=== PATIENT | female | born 1995 | race Asian ===

== ENCOUNTER 2016-10-18 11:38 | Emergency (ER) | payer OTHER ==
[2016-10-18 11:43] VITALS: BP 129/67; PULSE 105; TEMP 97.8; BMI 23.3
[2016-10-18 12:05] LABS: URINE APPEARANCE CLOUDY; URINE BILIRUBIN NEGATIVE (NEGATIVE); URINE COLOR RED; URINE GLUCOSE (UA) NEGATIVE (NEGATIVE); URINE KETONE NEGATIVE (NEGATIVE); URINE NITRITE NEGATIVE (NEGATIVE); URINE UROBILINOGEN NEGATIVE E.U./dl (0.2-1.0)
[2016-10-18 12:07] LABS: URINE BLOOD 3+ (NEGATIVE); URINE LEUK ESTERASE 2+ (NEGATIVE); URINE PROTEIN 3+ (NEGATIVE)
[2016-10-18 12:10] LABS: URINE RBC 4390 /hpf (0-3); URINE WBC 328 /hpf (3-5)
--- NOTE | 2016-10-18 12:31 | PDOC ---
History of Present Illness - General Chief Complaint: Urinary Problem Stated Complaint: ABD PAIN Time Seen by Provider: 10/18/16 12:24 History Source: Patient Exam Limitations: No Limitations - History of Present Illness Travel History: No Initial Comments: 10/18/16 12:34 onset of pain/ burning/ frequency x 2 days. Has had UTIS associated with Menses. Does not remember what meds taken. No fevers/ N/V or other problems 10/18/16 12:40 10/18/16 12:47 10/18/16 16:46 Timing/Duration: reports: getting worse, changing over time Quality: reports: mild Abdominal Pain Onset Location: reports: suprapubic, flank Pain Radiation: reports: no radiation Activities at Onset: reports: none Past History - Travel Traveled outside of the country in the last 30 days: No Close contact w/someone who was outside of country & ill: No - Past Medical History Allergies/Adverse Reactions: Allergies Allergy/AdvReac Type Severity Reaction Status Date / Time No Known Allergies Allergy Verified 10/18/16 11:43 Home Medications: Ambulatory Orders Nitrofurantoin Monohyd/M-Cryst [Macrobid -] 100 mg PO BID #14 capsule 10/18/16 Psychiatric Problems: Yes (ADHD) Other medical history: ARTHRITIS - Psycho/Social/Smoking Cessation Hx Anxiety: No Suicidal Ideation: No Smoking History: Never smoked Hx Alcohol Use: No Drug/Substance Use Hx: No Substance Use Type: None Review of Systems - Review of Systems Able to Perform ROS?: Yes Is the patient limited Citizen [place] proficient: Yes Constitutional: Yes: Symptoms Reported Respiratory: No: Symptoms reported ABD/GI: Yes: Symptoms Reported, Nausea, Abdominal cramping : Yes: Symptoms Reported, See HPI, Burning, Dysuria, Frequency, Hematuria. No : Discharge All Other Systems: Reviewed and Negative *Physical Exam - Vital Signs Last Vital Signs Temp Pulse Resp BP Pulse Ox 97.8 F 105 H 20 129/67 100 10/18/16 11:41 10/18/16 11:41 10/18/16 11:41 10/18/16 11:41 10/18/16 11:41 - Physical Exam General Appearance: Yes: Nourished, Appropriately Dressed, Apparent Distress, Mild Distress, Moderate Distress HEENT: positive: RODGER, Normal ENT Inspection, TMs Normal, Pharynx Normal Neck: negative: Tender Respiratory/Chest: positive: Lungs Clear, Normal Breath Sounds Gastrointestinal/Abdominal: positive: Tender (suprapubic ), Soft. negative: Normal Bowel Sounds, Distended, Guarding, Rebound Musculoskeletal: positive: Normal Inspection. negative: CVA Tenderness Extremity: positive: Normal Capillary Refill, Normal Inspection Integumentary: positive: Dry, Warm, Pale Neurologic: positive: user experience analyst II-XII NML intact, Fully Oriented, Alert, Normal Mood/ Affect, Normal Response, Motor Strength 08/21 ED Treatment Course - ADDITIONAL ORDERS Additional order review: Laboratory Results 10/18/16 11:56 Urine Color Red Urine Appearance Cloudy Urine pH 6.0 Urine Protein 3+ H Urine Glucose (UA) Negative Urine Ketones Negative Urine Blood 3+ H Urine Nitrite Negative Urine Bilirubin Negative Urine Urobilinogen Negative Ur Leukocyte Esterase 2+ H Urine RBC 4390 Urine WBC 328 Ur Epithelial Cells Many Urine HCG, Qual Negative Progress Note - Progress Note Progress Note: UTI, WIll treat with Macrobid. GIven 1st dose *DC/Admit/Observation/Transfer Diagnosis at time of Disposition: UTI (urinary tract infection) Qualifiers: Urinary tract infection type: acute cystitis Hematuria presence: with hematuria Qualified Code(s): N30.01 - Acute cystitis with hematuria - Discharge Dispostion Disposition: HOME Condition at time of disposition: Stable Admit: No - Prescriptions Prescriptions: Nitrofurantoin Monohyd/M-Cryst [Macrobid -] 100 mg PO BID #14 capsule - Referrals Referrals: STAFF,NOT ON [Primary Care Provider] - - Patient Instructions Printed Discharge Instructions: DI for Urinary Tract Infection (UTI) Additional Instructions: Rest, drink lots of fluids: Teas, water, soups Avoid contact with others until fevers and symptoms resolved Lots of handwashing and good hygiene Continue [id number] medications for symptomatic relief Tylenol or Motrin for fever and pain Continue all of antibiotics until completed Followup with private physician in one week for repeat urinalysis/reevaluation Return to emergency department for worsened symptoms, fevers, dehydration - Post Discharge Activity Work/School Note: Back to Work
[2016-10-18] MEDS ORDERED: NITROFURANTOIN MACROCRYSTAL 50 MG CAPSULE (FP) ONE (12:34)
[2016-10-18] MEDS ORDERED: NITROFURANTOIN MACROCRYSTAL 50 MG CAPSULE (FP) PO SCH (12:45)
== END 2016-10-18 13:13 | disposition home or self-care (01) ==
LOC: JERFT 11:38
DX: N30.01 Acute cystitis with hematuria (principal)
CPT/HCPCS: 81003; 81015; 84703; 99281-25

== ENCOUNTER 2019-06-12 20:59 | Emergency (ER) | payer OTHER ==
--- NOTE | 2019-06-12 21:07 | PDOC ---
Rapid Medical Evaluation Medical Evaluation: Allergies Allergy/AdvReac Type Severity Reaction Status Date / Time No Known Allergies Allergy Verified 10/18/16 11:43 I have performed a brief in-person evaluation of this patient. The patient presents with a chief complaint of: CP upon inspiration x 2 days; denies fever, cough; denies smoking; is on Nuvaring Pertinent physical exam findings: In NAD I have ordered the following: ekg, cxr, labs The patient will proceed to the ED for further evaluation. 06/12/19 21:04
[2019-06-12 21:10] VITALS: TEMP 97.7; BMI 28.3
[2019-06-13 00:09] LABS: BASO % 0.5 % (0-2.0); EOS % 1.4 % (0-4.5); HEMATOCRIT 42.7 % (32.4-45.2); HEMOGLOBIN 14.5 GM/dL (10.7-15.3); MCH 29.2 pg (25.7-33.7); MEAN CELL VOLUME 85.9 fl (80-96); MEAN PLT VOLUME 8.8 fl (7.5-11.1); MONO % 8.6 % (3.8-10.2); NEUT % 46.5 % (42.8-82.8); PLATELET COUNT 273 K/MM3 (134-434); RBC 4.97 M/mm3 (3.60-5.2); RDW 13.8 % (11.6-15.6)
[2019-06-13 00:34] LABS: ALBUMIN 3.9 g/dl (3.4-5.0); BILIRUBIN,TOTAL 0.3 mg/dL (0.2-1); BLOOD UREA NITROGEN 11.5 mg/dL (7-18); CALCIUM 9.6 mg/dL (8.5-10.1); CREATININE 0.8 mg/dL (0.55-1.3); POTASSIUM 3.9 mmol/L (3.5-5.1)
[2019-06-13] MEDS ORDERED: ACETAMINOPHEN 1000 MG/100 ML VIAL (NON FORMULARY) IVPB ONE (00:37)
[2019-06-13] MEDS ORDERED: SODIUM CHLORIDE 1,000 ML IV STA (00:37)
[2019-06-13] MEDS ORDERED: ACETAMINOPHEN INJECTION 100 ML IVPB ONE (00:45)
--- NOTE | 2019-06-13 01:33 | PDOC ---
Documentation entered by Lois Blankenship SCRIBE, acting as scribe for Loretta Johnston MD. Loretta Johnston MD: This documentation has been prepared by the joseibe, Lois Blankenship SCRIBE, under my direction and personally reviewed by me in its entirety. I confirm that the documentation accurately reflects all work, treatment, procedures, and medical decision making performed by me. Attending Attestation - Resident Resident Name: Arpan Stiles - ED Attending Attestation I have performed the following: I have examined & evaluated the patient, The case was reviewed & discussed with the resident, I agree w/resident's findings & plan, Exceptions are as noted - HPI HPI: 06/13/19 00:39 The patient is a 23-year-old female with no significant past medical history who presents to the emergency department with chest pain. 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 The patient reports today while driving, she had a hard time breathing, felt short of breath, associated with pleuritic chest pain, left- sided neck swelling, and several weeks of postnasal drip. The patient reports she's currently on NuvaRing. Allergies: NKA LMP: Currently. Social history: Occasional hookah use, occasional alcohol use. Family history: DM (Dad and Mom). Muscular dystrophy (Mom). Surgical history: breast reduction, ovarian cyst, breast biopsy. - Physicial Exam PE: 06/13/19 00:41 GENERAL: Well-appearing, well-nourished. No apparent distress. HEENT: Normocephalic, atraumatic. PERRL, EOM intact. CARDIOVASCULAR: Regular rate and rhythm. PULMONARY: Clear to auscultation bilaterally. ABDOMEN: Soft, non-distended, non-tender. EXTREMITIES: Normal ROM in all four extremities. No gross deformities. SKIN: Warm, dry. No rash NEUROLOGICAL: No focal neurological deficits. - Medical Decision Making 06/13/19 01:33 Negative test D-dimer is only 238 EKG is normal sinus rhythm at 92 bpm CBC does not show any significant anemia Chemistries are within normal limits with exception of glucose which is 110 Troponin is negative 06/13/19 01:33 Chest x-ray shows a normal mediastinum, clear lungs, no effusions no infiltrates , normal cardiac silhouette 06/13/19 02:03 Patient feels much better now was discharged home
--- NOTE | 2019-06-13 02:00 | PDOC ---
History of Present Illness - General Chief Complaint: Chest Pain Stated Complaint: SOB/CHEST PAIN Time Seen by Provider: 06/12/19 21:04 History Source: Patient Exam Limitations: No Limitations - History of Present Illness Initial Comments: 06/13/19 06:43 23 yo F with no pmhx presents to the emergency department with SOB with associative right chest wall pain that has been ongoing for 2-3 days. Per the patient, she travels frequently between [place] and [facility] in the car. She states she feels SOB at rest with associative pleuritic like chest pain on the right side. It worsens with deep breath and relieves while at rest with radiation throughout the right chest wall that lasts throughout the breath episode. Denies hx of DVT/PE, recent surgeries, recent immobilizations. Endorses using Nuva ring. Denies the following: fever, chills, nausea, vomiting, abdominal pain , dysuria, hematuria, diarrhea, and leg pain/swelling. Allergies: NKDA Past History - Past Medical History Allergies/Adverse Reactions: Allergies Allergy/AdvReac Type Severity Reaction Status Date / Time No Known Allergies Allergy Verified 06/12/19 21:07 Home Medications: Ambulatory Orders Nitrofurantoin Monohyd/M-Cryst [Macrobid -] 100 mg PO BID #14 capsule 10/18/16 COPD: No Psychiatric Problems: Yes (ADHD) - Psycho Social/Smoking Cessation Hx Smoking History: Never smoked Hx Alcohol Use: No Drug/Substance Use Hx: No Substance Use Type: None Review of Systems - Review of Systems Able to Perform ROS?: Yes Is the patient limited [place] proficient: No Constitutional: No: Chills, Diaphoresis, Fever, Weakness HEENTM: No: Eye Pain, Ear Pain, Nose Pain, Throat Pain, Mouth Pain Respiratory: Yes: Shortness of Breath, SOB at Rest. No: Cough, Hemoptysis Cardiac (ROS): Yes: Chest Pain. No: Lightheadedness, Palpitations, Chest Tightness ABD/GI: No: Constipated, Diarrhea, Nausea, Rectal Bleeding, Vomiting, Tarry Stools : No: Burning, Dysuria, Hematuria, Incontinence Musculoskeletal: No: Back Pain, Joint Pain, Neck Pain Integumentary: No: Bruising, Erythema, Rash Neurological: No: Headache, Tingling Psychiatric: No: Change in Appetite Endocrine: No: Unexplained Weight Loss Hematologic/Lymphatic: No: Anemia *Physical Exam - Vital Signs Last Vital Signs Temp Pulse Resp BP Pulse Ox 97.7 F 100 H 18 150/87 98 06/12/19 21:04 06/12/19 21:04 06/12/19 21:04 06/12/19 21:04 06/12/19 21:04 - Physical Exam General Appearance: Yes: Nourished, Appropriately Dressed. No: Apparent Distress, Intoxicated HEENT: positive: EOMI, RODGER, Normal Voice, Symmetrical, Pharynx Normal, Hearing Grossly Normal. negative: Pale Conjunctivae, Scleral Icterus (R), Scleral Icterus (L), Muffled/Hoarse voice, Pharyngeal Erythema, Tonsillar Exudate, Tonsillar Erythema, Excessive drooling Neck: positive: Trachea midline, Supple. negative: Tender, Lymphadenopathy (R) , Lymphadenopathy (L), Tender lateral, Tender midline Respiratory/Chest: positive: Lungs Clear, Normal Breath Sounds. negative: Chest Tender, Respiratory Distress, Accessory Muscle Use, Rhonchi, Stridor, Wheezing Cardiovascular: positive: Regular Rhythm, Regular Rate, S1, S2. negative: Systolic Murmur Gastrointestinal/Abdominal: positive: Normal Bowel Sounds, Flat, Soft. negative : Tender, Distended, Guarding, Rebound Lymphatic: negative: Adenopathy Musculoskeletal: positive: Normal Inspection. negative: CVA Tenderness, Vertebral Tenderness Extremity: positive: Normal Capillary Refill, Normal Inspection, Normal Range of Motion. negative: Tender, Swelling, Calf Tenderness Integumentary: positive: Normal Color, Dry, Warm. negative: Swelling, Ecchymosis Neurologic: positive: Fully Oriented, Alert, Normal Mood/Affect ED Treatment Course - LABORATORY CBC & Chemistry Diagram: 06/12/19 23:50 06/12/19 23:50 - ADDITIONAL ORDERS Additional order review: Laboratory Results 06/13/19 06/12/19 06/12/19 00:37 23:50 23:50 D-Dimer 238 Sodium Potassium Chloride Carbon Dioxide Anion Gap BUN Creatinine Est GFR (CKD-EPI)AfAm Est GFR (CKD-EPI)NonAf Random Glucose Calcium Total Bilirubin AST ALT Alkaline Phosphatase Troponin I < 0.02 Total Protein Albumin Serum , Qual Negative 06/12/19 23:50 D-Dimer Sodium 142 Potassium 3.9 Chloride 105 Carbon Dioxide 28 Anion Gap 9 BUN 11.5 Creatinine 0.8 Est GFR (CKD-EPI)AfAm 119.60 Est GFR (CKD-EPI)NonAf 103.19 Random Glucose 110 H Calcium 9.6 Total Bilirubin 0.3 AST 16 ALT 37 Alkaline Phosphatase 73 Troponin I Total Protein 8.0 Albumin 3.9 Serum , Qual 06/12/19 23:50 RBC 4.97 MCV 85.9 MCHC 34.0 RDW 13.8 MPV 8.8 Neutrophils % 46.5 Lymphocytes % 43.0 H Monocytes % 8.6 Eosinophils % 1.4 Basophils % 0.5 - Medications Given in the ED: ED Medications Discontinued Medications Generic Name Dose Route Start Last Admin Trade Name Freq PRN Reason Stop Dose Admin Acetaminophen 1,000 mg 06/13/19 00:37 06/13/19 01:00 Ofirmev Injection - IVPB 06/13/19 00:38 1,000 mg ONCE ONE Administration Sodium Chloride 1,000 mls @ 1,000 mls/hr 06/13/19 00:37 06/13/19 01:00 Normal Saline - IV 06/13/19 01:36 1,000 mls/hr ASDIR STA Administration Medical Decision Making - Medical Decision Making 23 yo F with no pmhx presents to the emergency department with SOB with associative right chest wall pain that has been ongoing for 2-3 days. Per the patient, she travels frequently between [place] and [facility] in the car. Initial vitals; Initial Vital Signs Temp Pulse Resp BP Pulse Ox 97.7 F 100 H 18 150/87 98 06/12/19 21:04 06/12/19 21:04 06/12/19 21:04 06/12/19 21:04 06/12/19 21:04 Work up: patient presents with right pleuritic chest pain that worsens with inspiration with the following DVT/PE risk factors: frequent long sitting trips and uses hormonal contraception. ddx: costochronditis vs ACS vs PE vs PNA vs pleuritis vs msk pain Laboratory Tests 06/12/19 06/12/19 06/12/19 23:50 23:50 23:50 WBC 6.0 RBC 4.97 Hgb 14.5 Hct 42.7 MCV 85.9 MCH 29.2 MCHC 34.0 RDW 13.8 Plt Count 273 MPV 8.8 Absolute Neuts (auto) 2.8 Neutrophils % 46.5 Lymphocytes % 43.0 H Monocytes % 8.6 Eosinophils % 1.4 Basophils % 0.5 Nucleated RBC % 0 D-Dimer 238 Sodium 142 Potassium 3.9 Chloride 105 Carbon Dioxide 28 Anion Gap 9 BUN 11.5 Creatinine 0.8 Est GFR (CKD-EPI)AfAm 119.60 Est GFR (CKD-EPI)NonAf 103.19 Random Glucose 110 H Calcium 9.6 Total Bilirubin 0.3 AST 16 ALT 37 Alkaline Phosphatase 73 Troponin I Total Protein 8.0 Albumin 3.9 Serum , Qual 06/12/19 06/13/19 23:50 00:37 WBC RBC Hgb Hct MCV MCH MCHC RDW Plt Count MPV Absolute Neuts (auto) Neutrophils % Lymphocytes % Monocytes % Eosinophils % Basophils % Nucleated RBC % D-Dimer Sodium Potassium Chloride Carbon Dioxide Anion Gap BUN Creatinine Est GFR (CKD-EPI)AfAm Est GFR (CKD-EPI)NonAf Random Glucose Calcium Total Bilirubin AST ALT Alkaline Phosphatase Troponin I < 0.02 Total Protein Albumin Serum , Qual Negative d-dimer negative trop negative CXR was within normal limits EKG: patient has NSR with TWI in V3 without ST elevations or depression. no evidence of RBBB of [id number] suggestive of PE. Patient received tylenol for analgesia. Patient was re-assessed and stated her pain has resolved with the tylenol. Likely the patient is having costochondritis vs pleuritis of viral etiology given the presenting symptoms and negative work up. The patient was advised to follow up with her pMD within 1 week after discharge and given strict return precautions. Dispo: Discharge Discharge - Discharge Information Problems reviewed: Yes Clinical Impression/Diagnosis: Chest pain Condition: Stable Disposition: HOME - Admission No - Follow up/Referral Referrals: Salinas Lerma MD [Primary Care Provider] - - Patient Discharge Instructions Patient Printed Discharge Instructions: DI for Atypical Chest Pain, DI for Chest Pain Additional Instructions: You were seen in the emergency for the evaluation of your chest pain. Your labs were within normal limits and your EKG was within normal limits. Please follow up with your primary medical doctor within 1 week after discharge for follow up care and management. Please return to the emergency department if you have worsening symptoms or new concerning symptoms. Thank you. - Post Discharge Activity
[2019-06-13 02:25] VITALS: BP 117/72; PULSE 86
--- NOTE | 2019-06-13 09:40 | EKG ---
Test Reason : Blood Pressure : / mmHG Vent. Rate : 092 BPM Atrial Rate : 092 BPM P-R Int : 146 ms QRS Dur : 086 ms QT Int : 358 ms P-R-T Axes : 060 033 026 degrees QTc Int : 442 ms NORMAL SINUS RHYTHM POSSIBLE LEFT ATRIAL ENLARGEMENT BORDERLINE ECG NO PREVIOUS ECGS AVAILABLE Confirmed by Kevin Jean MD ([id number]) on 06/13/2019 9:40:08 AM Referred By: Confirmed By:Kevin Jean MD
== END 2019-06-13 02:20 | disposition home or self-care (01) ==
LOC: JER 20:59
PROC: 3E033NZ Introduction of Analgesics, Hypnotics, Sedatives into Peripheral Vein, Percutaneous Approach (ICD-10-PCS; principal; 2019-06-12)
DX: R07.9 Chest pain, unspecified (principal); F90.9 Attention-deficit hyperactivity disorder, unspecified type; Z97.5 Presence of (intrauterine) contraceptive device
CPT/HCPCS: 36415; 71046-TC-FY; 80053; 84484; 84703; 85025; 85379; 93005; 93010; 96374; 99285-25; J0131; J7030